=== PATIENT | male | born 1940 | race Native Hawaiian/Other Pacific Islander ===

== ENCOUNTER 2017-11-27 16:41 | Outpatient (CLI) | payer OTHER | END 2017-11-27 23:26 | disposition home or self-care (01) | LOC: RAD 16:41 | DX: R06.09 Other forms of dyspnea (principal) ==

== ENCOUNTER 2019-04-12 13:39 | Outpatient (CLI) | payer OTHER | END 2019-04-12 20:14 | disposition home or self-care (01) | LOC: RAD 13:39 | DX: M25.562 Pain in left knee (principal) ==

== ENCOUNTER 2020-08-08 10:14 | Outpatient (CLI) | payer OTHER | END 2020-08-08 19:34 | disposition home or self-care (01) | LOC: US 10:14 | PROVIDERS: ATTEND Nurse Practitioner | DX: M79.604 Pain in right leg (principal) ==

== ENCOUNTER 2020-10-13 09:36 | Emergency (ER) | payer OTHER ==
[~2020-10-13] VITALS: Ht 182.9 cm; Wt 74.8 kg
[2020-10-13 10:16] LABS: PLATELET COUNT 216 K/uL (142-355)
[2020-10-13 10:21] LABS: POTASSIUM 3.5 mmol/L (3.6-5.2); SODIUM 136 mmol/L (136-145)
[2020-10-13 10:31] LABS: PARTIAL THROMBOPLASTIN TIME 23.4 SECONDS (24.5-33.6)
[2020-10-13 12:38] VITALS: BP 109/57; TEMP 97.8
== END 2020-10-13 12:38 | disposition home or self-care (01) ==
LOC: ED 09:36
PROVIDERS: Family Medicine
DX: R55 Syncope and collapse (principal); E87.6 Hypokalemia; Z98.890 Other specified postprocedural states
CPT/HCPCS: 80053; 81000; 82550; 84484; 85027; 85610; 85730; 93005; 96360; 99284; J0696

== ENCOUNTER 2022-08-01 08:09 | Outpatient (CLI) | payer OTHER ==
[2022-08-01 08:32] LABS: POTASSIUM 3.2 mmol/L (3.6-5.2)
== END 2022-08-01 17:00 | disposition home or self-care (01) ==
LOC: LABW 08:09
PROVIDERS: ATTEND Internal Medicine Endocrinology, Diabetes & Metabolism
DX: M89.8X8 Other specified disorders of bone, other site (principal)
CPT/HCPCS: 36415; 80053; 83970

== ENCOUNTER 2022-08-20 16:04 | Outpatient (CLI) | payer OTHER | END 2022-08-20 19:46 | LOC: RAD 16:04 | PROVIDERS: ATTEND Internal Medicine | DX: J45.21 Mild intermittent asthma with (acute) exacerbation (principal) ==

== ENCOUNTER 2022-09-05 10:07 | Outpatient (CLI) | payer OTHER | END 2022-09-05 19:44 | disposition home or self-care (01) | LOC: LAB 10:07 | PROVIDERS: ATTEND Internal Medicine | DX: R19.7 Diarrhea, unspecified (principal) | CPT/HCPCS: 82272; 83630; 87015; 87045; 87324; 87328; 87329; 87449; 87507; 87899 ==